=== PATIENT | male | born 1985 | race Caucasian/White ===

== ENCOUNTER 2022-02-17 18:52 | Emergency (ER) | payer OTHER ==
[~2022-02-17] VITALS: Ht 170.2 cm; Wt 71.2 kg
[2022-02-17 19:00] VITALS: BP 127/80
--- NOTE | 2022-02-17 19:14 | PHYS DOC ---
Adult General Chief Complaint Chief Complaint: OTHER COMPLAINTS HPI HPI Patient is a otherwise healthy 36-year-old male who presents with a lump on his neck. States it has been there for couple weeks. Denies any recent travel, traumas, illness, fevers, pain or trouble swallowing, sore throat, chest pain, shortness of breath, abdominal pain, nausea, vomiting. Review of Systems Review of Systems Review of systems otherwise unremarkable except noted in HPI Physical Exam Physical Exam Constitutional: Well developed, well nourished, no acute distress, non-toxic appearance. [] HENT: Normocephalic, atraumatic, bilateral external ears normal, oropharynx moist, no oral exudates, nose normal. [] Eyes:conjunctiva normal, no discharge. [] Neck: Normal range of motion, no tenderness, supple, no stridor, 1 cm round, soft, mobile mass in left cervical region. [] Cardiovascular:Heart rate regular rhythm, no murmur [] Lungs & Thorax: Bilateral breath sounds clear to auscultation [] Skin: Warm, dry, no erythema, no rash. [] Extremities: No tenderness, no cyanosis, no clubbing, ROM intact, no edema. [] Neurologic: Alert and oriented X 3, normal motor function, normal sensory function, no focal deficits noted. [] Psychologic: Affect normal, judgement normal, mood normal. [] EKG EKG [] Radiology/Procedures Radiology/Procedures [] Heart Score C/O Chest Pain: No Risk Factors: Risk Factors: DM, Current or recent (<one month) smoker, HTN, HLP, family history of CAD, obesity. Risk Scores: Risk Factors: DM, Current or recent (<one month) smoker, HTN, HLP, family history of CAD, obesity. Course & Med Decision Making Course & Med Decision Making Patient is a 36-year-old male who presents with a mass on the left side of his neck Vital signs not concerning. Physical exam noted above. Discussed differential diagnosis including but not limited to lymphadenopathy, cyst, lipoma Discussed the need to follow-up with primary care physician and watch this and discuss need for MRI versus biopsy Patient verbalized understanding but stated he was frustrated because nobody seems to want to help him. I discussed with patient the need to follow-up with primary care physician, follow this over time and discussed MRI versus biopsy. Again patient verbalized understanding, then got up took off his blood pressure cuff and, said if you choice curse words and walked out. [] Dragon Disclaimer Dragon Disclaimer This electronic medical record was generated, in whole or in part, using a voice recognition dictation system. Departure Departure: Impression: Primary Impression: Mass in neck Disposition: HOME / SELF CARE / HOMELESS Condition: STABLE Referrals: PCP,NO (PCP) CYNTHIA LEVINE MD, ADAM W MD Feb 17, 2022 19:14
== END 2022-02-17 19:25 | disposition home or self-care (01) ==
LOC: ER 18:52
DX: R22.1 Localized swelling, mass and lump, neck (principal)
CPT/HCPCS: 99281